=== PATIENT | male | born 1960 | race African-American/Black ===

== ENCOUNTER 2019-03-10 09:47 | Inpatient (IN) ==
[2019-03-10 10:57] LABS: Basophils % 0.1 %; Hematocrit 43.5 % (37.5-50.1); Hemoglobin 13.8 g/dL (12.9-16.9); Immature Granulocytes % 0.5 % (0-4); Lymphocytes # 0.8 K/mcL (0.6-4.6); Lymphocytes % 4.3 %; Mean Corpuscular HGB Conc 31.7 g/dL (31.6-35.5); Mean Corpuscular Hemoglobin 29.7 pg (28.0-33.3); Mean Corpuscular Volume 93.5 fL (83.0-100.0); Mean Platelet Volume 12.2 fL (9.4-12.4); Monocytes # 1.8 K/mcL (0.0-1.3); Monocytes % 10.3 %; Neutrophils # 15.1 K/mcL (1.6-8.9); Platelet Count 243 K/mcL (140-400); Red Blood Count 4.65 M/mcL (4.19-5.50); Red Cell Distribution Width 13.3 % (11.5-14.5); Segmented Neutrophils % 84.8 %; White Blood Count 17.9 K/mcL (4.3-11.1)
[2019-03-10 11:03] LABS: Albumin 4.2 g/dL (3.5-5.7); Albumin/Globulin Ratio 1.1 (1.1-2.2); Bilirubin,Direct 0.5 mg/dL (0.0-0.2); Bilirubin,Total 1.5 mg/dL (0.3-1.0); Calcium 9.1 mg/dL (8.6-10.3); Globulin 3.7 g/dL (2.4-3.5); Potassium 3.5 mEq/L (3.5-5.1); Total Protein 7.9 g/dL (6.4-8.9)
[2019-03-10] MEDS ORDERED: *HR* HYDROmorphone (PF) 1 MG/ML SYRINGE IVP ONE (11:12)
[2019-03-10] MEDS ORDERED: Ondansetron 4 MG/2 ML VIAL IVP ONE ×2 (11:12→20:48)
[2019-03-10 12:02] LABS: Bilirubin,Urine Large (Negative); Blood,Urine Large (Negative); Clarity,Urine Turbid (Clear); Color,Urine Red (Yellow); Glucose,Urine (UA) 100 mg/dL (Normal); Ketones,Urine 15 mg/dL (Negative); Leukocyte Esterase,Urine Moderate (Negative); Nitrite,Urine Positive (Negative); Protein,Urine 100 mg/dL (Neg-Trace); Urobilinogen,Urine Normal (Normal)
[2019-03-10 12:05] LABS: Bacteria,Urine Many per hpf (None-Few); Squamous Epithelial Cell,Urine Many per lpf (None-Few)
[2019-03-10 12:28] LABS: RBC,Urine TNTC per hpf (0-3)
[2019-03-10 12:29] LABS: Hyaline Casts,Urine None Seen per lpf (None-Few); WBC,Urine 15-30 per hpf (0-3)
[2019-03-10 12:30] LABS: Granular Casts,Urine Few per lpf (None Seen)
[2019-03-10] MEDS ORDERED: Piperacillin/Tazobactam 3.375 GM in 0.9 % Sodium Chloride Mini Bag 100 ML IVPB ONE (14:06)
[2019-03-10] MEDS ORDERED: Ondansetron 4 MG/2 ML VIAL IVP PRN ×2 (14:11→21:40)
[2019-03-10] MEDS ORDERED: Naloxone 0.4 MG/ML INJ IVP PRN ×2 (14:11→21:40)
[2019-03-10] MEDS ORDERED: D5% in Water 1,000 ML IVC PRN ×2 (14:19→21:40)
[2019-03-10] MEDS ORDERED: Dextrose Gel 15 GM/37.5 ML TUBE PO PRN ×4 (14:19→21:40)
[2019-03-10] MEDS ORDERED: *HR* Dextrose 50 % in Water (Syg) 50 ML SYRINGE IVP PRN ×2 (14:19→21:40)
[2019-03-10] MEDS ORDERED: *HR* HYDROcodone/Acet 5/325 mg TABLET PO PRN ×2 (14:22→21:40)
[2019-03-10] MEDS ORDERED: D5% in Lactated Ringers 1,000 ML IVC SCH (14:30)
[2019-03-10] MEDS ORDERED: Pantoprazole 40 MG VIAL IVP SCH (14:30)
[2019-03-10 15:10] LABS: INR 1.4; Prothrombin Time 16.2 Seconds (9.4-12.1)
[2019-03-10 15:12] LABS: Activated Partial Thrombo Time 31.2 Seconds (26.0-36.0)
[2019-03-10] MEDS ORDERED: Albuterol 2.5 MG/3 ML NEBULIZER IH ONE (17:08)
[2019-03-10] MEDS ORDERED: Isovue-300 50ML VIAL ONE (17:12)
[2019-03-10] MEDS ORDERED: *HR* Propofol 200 MG/20 ML VIAL IVP ONE (17:18)
[2019-03-10] MEDS ORDERED: *HR* FentaNYL (PF) 100 MCG/2 ML VIAL ONE (17:18)
[2019-03-10] MEDS ORDERED: Acetaminophen IV 1,000 MG/100 ML INFUS..BTL ONE (17:19)
[2019-03-10] MEDS ORDERED: Famotidine 20 MG/2 ML VIAL ONE (17:19)
[2019-03-10] MEDS ORDERED: Ondansetron 4 MG/2 ML VIAL ONE (17:41)
[2019-03-10] MEDS ORDERED: Lidocaine HCL 4 ML Topical Solution (Laryng-O-Jet Kit Sterile Pak) TP ONE (17:41)
[2019-03-10] MEDS ORDERED: Dexamethasone 4 MG/ML VIAL ONE (17:41)
[2019-03-10] MEDS ORDERED: *HR* Rocuronium Bromide 50 MG/5 ML VIAL ONE ×2 (17:44→19:17)
[2019-03-10] MEDS ORDERED: Lidocaine -MPF 2% 2 ML VIAL ONE (17:44)
[2019-03-10] MEDS ORDERED: Insulin LISPRO 300 UNITS/3 ML VIAL SQ SCH (18:00)
[2019-03-10] MEDS ORDERED: *HR* Metoprolol 5 MG/5 ML VIAL IVP ONE (18:05)
[2019-03-10] MEDS ORDERED: *HR* PHENYLEPHRINE 1,000 MCG/10 ML SYRINGE IVP ONE (18:07)
[2019-03-10] MEDS ORDERED: Piperacillin/Tazobactam 3.375 GM in 0.9 % Sodium Chloride Mini Bag 100 ML IVPB SCH (20:00)
[2019-03-10] MEDS ORDERED: *HR* HYDROmorphone (PF) 1 MG/ML SYRINGE IVP PRN (20:48)
[2019-03-11] MEDS: D5% in Lactated Ringers 1,000 ML IVC SCH ×2 (01:07→08:36)
[2019-03-11] MEDS: Nicotine 21 MG PATCH.TD24 TD SCH ×2 (01:08→08:34)
[2019-03-11] MEDS: Insulin LISPRO 300 UNITS/3 ML VIAL SQ SCH ×5 (01:11→22:16)
[2019-03-11] MEDS: Acetaminophen IV 1,000 MG/100 ML INFUS..BTL IVPB SCH ×4 (01:12→18:39)
[2019-03-11] MEDS: Meropenem 1,000 MG in Water for inj. (sterile) 10 ML IVP SCH ×3 (01:12→15:48)
[2019-03-11 03:18] LABS: Magnesium 1.6 mg/dL (1.6-2.6); Phosphorous 2.6 mg/dL (2.7-4.5)
[2019-03-11 03:20] LABS: Alanine Aminotransferase 105 Units/L (7-52); Albumin 3.1 g/dL (3.5-5.7); Alkaline Phosphatase 57 Units/L (34-104); Aspartate Amino Transferase 154 Units/L (13-39); BUN/Creatinine Ratio 22 (6-26); Bilirubin,Total 1.3 mg/dL (0.3-1.0); Blood Urea Nitrogen 27 mg/dL (6-20); Calcium 7.8 mg/dL (8.6-10.3); Carbon Dioxide 26 mEq/L (23-29); Chloride 102 mEq/L (98-107); Glucose 207 mg/dL (70-105); Osmolality,Calculated 293 (280-300); Potassium 3.7 mEq/L (3.5-5.1); Sodium 136 mEq/L (136-145); Total Protein 6.1 g/dL (6.4-8.9); eGFR For African Americans > 60 (> 60); eGFR For Non-African Americans 60 (> 60)
[2019-03-11] MEDS: Pantoprazole 40 MG VIAL IVP SCH (06:27)
[2019-03-11 08:09] LABS: Basophils % 0.1 %; Hematocrit 33.2 % (37.5-50.1); Immature Granulocytes % 0.3 % (0-4); Lymphocytes # 0.6 K/mcL (0.6-4.6); Lymphocytes % 3.9 %; Mean Corpuscular HGB Conc 32.5 g/dL (31.6-35.5); Mean Corpuscular Hemoglobin 30.3 pg (28.0-33.3); Monocytes # 1.2 K/mcL (0.0-1.3); Monocytes % 8.3 %; Platelet Count 206 K/mcL (140-400); Red Blood Count 3.57 M/mcL (4.19-5.50); Red Cell Distribution Width 13.3 % (11.5-14.5); Segmented Neutrophils % 87.4 %; White Blood Count 14.9 K/mcL (4.3-11.1)
[2019-03-11 08:10] LABS: Hemoglobin 10.8 g/dL (12.9-16.9)
[2019-03-11 19:53] LABS: Albumin/Globulin Ratio 1.2 (1.1-2.2); Bilirubin,Direct 0.3 mg/dL (0.0-0.2); Bilirubin,Indirect 0.4 mg/dL (0.0-1.0); Bilirubin,Total 0.7 mg/dL (0.3-1.0); Globulin 2.6 g/dL (2.4-3.5); Total Protein 5.6 g/dL (6.4-8.9)
[2019-03-11] MEDS: Insulin DETEMIR 100 UNIT/ML X5UNITS SQ SCH (22:16)
[2019-03-12] MEDS: Meropenem 1,000 MG in Water for inj. (sterile) 10 ML IVP SCH ×4 (00:20→23:55)
[2019-03-12] MEDS: *HR* Heparin 5,000 UNIT/ML VIAL SQ SCH ×3 (00:20→17:13)
[2019-03-12] MEDS: Acetaminophen IV 1,000 MG/100 ML INFUS..BTL IVPB SCH ×4 (00:20→21:26)
[2019-03-12 05:40] LABS: Basophils % 0.1 %; Eosinophils % 0.2 %; Hematocrit 30.7 % (37.5-50.1); Hemoglobin 9.9 g/dL (12.9-16.9); Immature Granulocytes % 0.6 % (0-4); Lymphocytes # 1.3 K/mcL (0.6-4.6); Lymphocytes % 13.1 %; Mean Corpuscular HGB Conc 32.2 g/dL (31.6-35.5); Mean Corpuscular Hemoglobin 29.1 pg (28.0-33.3); Mean Corpuscular Volume 90.3 fL (83.0-100.0); Mean Platelet Volume 11.6 fL (9.4-12.4); Monocytes % 10.3 %; Neutrophils # 7.5 K/mcL (1.6-8.9); Platelet Count 220 K/mcL (140-400); Red Cell Distribution Width 13.2 % (11.5-14.5); Segmented Neutrophils % 75.7 %
[2019-03-12 05:55] LABS: Alanine Aminotransferase 77 Units/L (7-52); Albumin 2.9 g/dL (3.5-5.7); Alkaline Phosphatase 63 Units/L (34-104); Aspartate Amino Transferase 64 Units/L (13-39); BUN/Creatinine Ratio 12 (6-26); Bilirubin,Total 0.7 mg/dL (0.3-1.0); Blood Urea Nitrogen 12 mg/dL (6-20); Calcium 7.8 mg/dL (8.6-10.3); Carbon Dioxide 29 mEq/L (23-29); Chloride 102 mEq/L (98-107); Globulin 2.8 g/dL (2.4-3.5); Glucose 130 mg/dL (70-105); Osmolality,Calculated 294 (280-300); Potassium 3.2 mEq/L (3.5-5.1); Sodium 141 mEq/L (136-145); Total Protein 5.7 g/dL (6.4-8.9); eGFR For African Americans > 60 (> 60); eGFR For Non-African Americans > 60 (> 60)
[2019-03-12] MEDS: Pantoprazole 40 MG VIAL IVP SCH (06:23)
[2019-03-12] MEDS: Nicotine 21 MG PATCH.TD24 TD SCH (09:04)
[2019-03-12] MEDS: Lisinopril 20 MG TABLET PO SCH (09:04)
[2019-03-12] MEDS: Insulin LISPRO 300 UNITS/3 ML VIAL SQ SCH ×5 (09:05→21:27)
[2019-03-12] MEDS: Insulin DETEMIR 100 UNIT/ML X5UNITS SQ SCH (21:38)
[2019-03-13] MEDS: Acetaminophen IV 1,000 MG/100 ML INFUS..BTL IVPB SCH ×5 (00:01→23:16)
[2019-03-13] MEDS: *HR* Heparin 5,000 UNIT/ML VIAL SQ SCH ×2 (05:28→17:09)
[2019-03-13 06:26] LABS: Basophils % 0.1 %; Eosinophils # 0.1 K/mcL (0.0-0.6); Hematocrit 32.2 % (37.5-50.1); Hemoglobin 10.6 g/dL (12.9-16.9); Immature Granulocytes % 0.3 % (0-4); Lymphocytes # 1.3 K/mcL (0.6-4.6); Lymphocytes % 17.6 %; Mean Corpuscular HGB Conc 32.9 g/dL (31.6-35.5); Mean Corpuscular Hemoglobin 29.2 pg (28.0-33.3); Mean Corpuscular Volume 88.7 fL (83.0-100.0); Mean Platelet Volume 11.8 fL (9.4-12.4); Monocytes # 0.8 K/mcL (0.0-1.3); Monocytes % 11.3 %; Platelet Count 247 K/mcL (140-400); Red Blood Count 3.63 M/mcL (4.19-5.50); Red Cell Distribution Width 13.2 % (11.5-14.5); Segmented Neutrophils % 69.7 %; White Blood Count 7.1 K/mcL (4.3-11.1)
[2019-03-13 06:47] LABS: Alanine Aminotransferase 55 Units/L (7-52); Albumin 3.1 g/dL (3.5-5.7); Alkaline Phosphatase 77 Units/L (34-104); Aspartate Amino Transferase 37 Units/L (13-39); BUN/Creatinine Ratio 10 (6-26); Bilirubin,Total 0.8 mg/dL (0.3-1.0); Blood Urea Nitrogen 8 mg/dL (6-20); Carbon Dioxide 27 mEq/L (23-29); Chloride 103 mEq/L (98-107); Glucose 124 mg/dL (70-105); Osmolality,Calculated 302 (280-300); Potassium 3.4 mEq/L (3.5-5.1); Sodium 146 mEq/L (136-145); Total Protein 6.1 g/dL (6.4-8.9); eGFR For African Americans > 60 (> 60); eGFR For Non-African Americans > 60 (> 60)
[2019-03-13 06:53] LABS: Magnesium 1.8 mg/dL (1.6-2.6); Phosphorous 2.1 mg/dL (2.7-4.5)
[2019-03-13] MEDS: Cyanocobalamin (B-12) 1,000 MCG TABLET PO SCH (08:20)
[2019-03-13] MEDS: Nicotine 21 MG PATCH.TD24 TD SCH (08:20)
[2019-03-13] MEDS: Lisinopril 20 MG TABLET PO SCH (08:20)
[2019-03-13] MEDS: Meropenem 1,000 MG in Water for inj. (sterile) 10 ML IVP SCH (08:23)
[2019-03-13] MEDS: Insulin LISPRO 300 UNITS/3 ML VIAL SQ SCH ×4 (10:52→21:35)
[2019-03-13] MEDS: Piperacillin/Tazobactam 3.375 GM in 0.9 % Sodium Chloride Mini Bag 100 ML IVPB SCH ×2 (16:19→23:59)
[2019-03-13] MEDS ORDERED: *HR* Metformin 500 MG TABLET PO SCH (17:00)
[2019-03-13] MEDS ORDERED: Piperacillin/Tazobactam 3.375 GM in 0.9 % Sodium Chloride Mini Bag 100 ML IVPB SCH (18:00)
[2019-03-13] MEDS: Insulin DETEMIR 100 UNIT/ML X5UNITS SQ SCH (21:40)
[2019-03-14 05:36] LABS: Basophils % 0.3 %; Eosinophils # 0.1 K/mcL (0.0-0.6); Eosinophils % 1.7 %; Hematocrit 31.9 % (37.5-50.1); Hemoglobin 10.5 g/dL (12.9-16.9); Immature Granulocytes % 0.5 % (0-4); Lymphocytes # 1.5 K/mcL (0.6-4.6); Lymphocytes % 18.9 %; Mean Corpuscular HGB Conc 32.9 g/dL (31.6-35.5); Mean Corpuscular Hemoglobin 29.2 pg (28.0-33.3); Mean Corpuscular Volume 88.9 fL (83.0-100.0); Mean Platelet Volume 10.9 fL (9.4-12.4); Monocytes # 0.9 K/mcL (0.0-1.3); Monocytes % 10.9 %; Neutrophils # 5.3 K/mcL (1.6-8.9); Platelet Count 283 K/mcL (140-400); Red Blood Count 3.59 M/mcL (4.19-5.50); Red Cell Distribution Width 13.2 % (11.5-14.5); Segmented Neutrophils % 67.7 %; White Blood Count 7.8 K/mcL (4.3-11.1)
[2019-03-14] MEDS: *HR* Heparin 5,000 UNIT/ML VIAL SQ SCH ×2 (07:00→17:37)
[2019-03-14] MEDS: Acetaminophen IV 1,000 MG/100 ML INFUS..BTL IVPB SCH ×3 (07:00→18:48)
[2019-03-14] MEDS: Cyanocobalamin (B-12) 1,000 MCG TABLET PO SCH (08:19)
[2019-03-14] MEDS: 0.9 % Sodium Chloride 1,000 ML IVC SCH ×3 (08:19→22:08)
[2019-03-14] MEDS: amLODIPine 5 MG TABLET PO SCH (08:19)
[2019-03-14] MEDS: Nicotine 21 MG PATCH.TD24 TD SCH (08:19)
[2019-03-14] MEDS: Piperacillin/Tazobactam 3.375 GM in 0.9 % Sodium Chloride Mini Bag 100 ML IVPB SCH ×2 (08:20→15:31)
[2019-03-14] MEDS: Insulin LISPRO 300 UNITS/3 ML VIAL SQ SCH ×4 (08:24→22:06)
[2019-03-14] MEDS ORDERED: Acetaminophen IV 1,000 MG/100 ML INFUS..BTL ONE (16:48)
[2019-03-14] MEDS ORDERED: Famotidine 20 MG/2 ML VIAL ONE (16:49)
[2019-03-14] MEDS ORDERED: Albuterol 2.5 MG/3 ML NEBULIZER IH ONE (16:52)
[2019-03-14] MEDS ORDERED: Lidocaine -MPF 2% 2 ML VIAL ONE (16:57)
[2019-03-14] MEDS ORDERED: Lidocaine -MPF 4% 5 ML AMPUL ONE (16:57)
[2019-03-14] MEDS ORDERED: *HR* FentaNYL (PF) 100 MCG/2 ML VIAL ONE (16:57)
[2019-03-14] MEDS ORDERED: Ondansetron 4 MG/2 ML VIAL ONE (16:57)
[2019-03-14] MEDS ORDERED: *HR* Succinylcholine 200 MG/10 ML VIAL IVP ONE (16:57)
[2019-03-14] MEDS ORDERED: *HR* Propofol 200 MG/20 ML VIAL IVP ONE (16:58)
[2019-03-14] MEDS ORDERED: Ringers Solution, Lactated 1,000 ML IVC SCH (17:15)
[2019-03-14] MEDS ORDERED: Esmolol 100 MG/10 ML VIAL IVP ONE (18:01)
[2019-03-14] MEDS ORDERED: *HR* Rocuronium Bromide 50 MG/5 ML VIAL ONE (18:01)
[2019-03-14] MEDS ORDERED: Dexamethasone 4 MG/ML VIAL ONE (18:02)
[2019-03-14] MEDS ORDERED: Indomethacin 50 MG SUPP.RECT RC ONE (18:07)
[2019-03-15] MEDS: Insulin DETEMIR 100 UNIT/ML X5UNITS SQ SCH (00:44)
[2019-03-15] MEDS: Acetaminophen IV 1,000 MG/100 ML INFUS..BTL IVPB SCH ×2 (00:50→06:36)
[2019-03-15] MEDS: Piperacillin/Tazobactam 3.375 GM in 0.9 % Sodium Chloride Mini Bag 100 ML IVPB SCH ×2 (00:51→08:07)
[2019-03-15 05:39] LABS: Hematocrit 31.1 % (37.5-50.1); Hemoglobin 10.3 g/dL (12.9-16.9); Mean Corpuscular HGB Conc 33.1 g/dL (31.6-35.5); Mean Corpuscular Hemoglobin 29.9 pg (28.0-33.3); Mean Corpuscular Volume 90.1 fL (83.0-100.0); Mean Platelet Volume 10.8 fL (9.4-12.4); Platelet Count 313 K/mcL (140-400); Red Blood Count 3.45 M/mcL (4.19-5.50); Red Cell Distribution Width 12.9 % (11.5-14.5); White Blood Count 9.2 K/mcL (4.3-11.1)
[2019-03-15] MEDS: *HR* Heparin 5,000 UNIT/ML VIAL SQ SCH (05:53)
[2019-03-15 05:57] LABS: Alanine Aminotransferase 26 Units/L (7-52); Albumin 2.9 g/dL (3.5-5.7); Alkaline Phosphatase 66 Units/L (34-104); Aspartate Amino Transferase 12 Units/L (13-39); BUN/Creatinine Ratio 17 (6-26); Bilirubin,Total 0.5 mg/dL (0.3-1.0); Blood Urea Nitrogen 14 mg/dL (6-20); Calcium 8.1 mg/dL (8.6-10.3); Carbon Dioxide 23 mEq/L (23-29); Chloride 106 mEq/L (98-107); Globulin 2.9 g/dL (2.4-3.5); Glucose 148 mg/dL (70-105); Osmolality,Calculated 295 (280-300); Potassium 4.3 mEq/L (3.5-5.1); Sodium 141 mEq/L (136-145); Total Protein 5.8 g/dL (6.4-8.9); eGFR For African Americans > 60 (> 60); eGFR For Non-African Americans > 60 (> 60)
[2019-03-15] MEDS: Cyanocobalamin (B-12) 1,000 MCG TABLET PO SCH (08:07)
[2019-03-15] MEDS: amLODIPine 5 MG TABLET PO SCH (08:07)
[2019-03-15] MEDS: Nicotine 21 MG PATCH.TD24 TD SCH (08:07)
[2019-03-15] MEDS: 0.9 % Sodium Chloride 1,000 ML IVC SCH (08:08)
[2019-03-15] MEDS: Insulin LISPRO 300 UNITS/3 ML VIAL SQ SCH (08:08)
[2019-03-15 10:48] VITALS: BP 154/88
== END 2019-03-15 11:06 | disposition home or self-care (01) | DRG 418 ==
LOC: EMEROOARM 09:47 → 3ANU 09:47 → SUATTDRO 14:56 → 3ANU 15:31 → SUATTDRO 03-11 16:13
PROVIDERS: ADMIT Internal Medicine; ATTEND Internal Medicine